=== PATIENT | female | born 1965 | race Two or more races ===

== ENCOUNTER 2020-11-03 08:00 | Outpatient (CLI) | payer OTHER | END 2020-11-03 08:30 | disposition home or self-care (01) | LOC: PPH VACUNA 08:00 | DX: Z23 Encounter for immunization (principal) ==

== ENCOUNTER 2022-01-25 12:57 | Emergency (ER) | payer OTHER ==
[~2022-01-25] VITALS: Ht 157.5 cm; Wt 65.3 kg
== END 2022-01-25 17:31 | disposition home or self-care (01) ==
LOC: ER 12:57
DX: S89.92XA Unspecified injury of left lower leg, initial encounter (principal); S89.91XA Unspecified injury of right lower leg, initial encounter; W19.XXXA Unspecified fall, initial encounter; Y93.9 Activity, unspecified; Y92.512 Supermarket, store or market as the place of occurrence of the external cause

== ENCOUNTER 2023-12-10 08:26 | Outpatient (CLI) | payer OTHER ==
[2023-12-10 09:05] LABS: URINE APPEARANCE Clear; URINE BILIRRUBIN Negative (NEGATIVE); URINE BLOOD Negative; URINE COLOR Yellow; URINE GLUCOSE Negative (NEGATIVE); URINE KETONE Negative (NEGATIVE); URINE LEUKOCYTE Moderate; URINE NITRATE Negative; URINE PROTEIN Negative (NEGATIVE); URINE UROBILINOGEN 0.2 E.U./dl
[2023-12-10 09:06] LABS: HEMOGLOBIN 14.1 g/dL (12.0-15.00); MEAN CELL VOLUME 91.5 fL (80.00-100.00); MEAN CORPUSCULAR HEMOGLOBIN 32.3 pg (27.00-32.0); MEAN CORPUSCULAR HGB CONC 35.3 g/dl (32.0-36.0); PLATELET COUNT 277 K/uL (150-450); RED BLOOD COUNT 4.37 M/uL (4.00-6.00)
[2023-12-10 09:09] LABS: URINE BACTERIA 692.8 uL (0.0-1933); URINE EPITHELIAL CELLS 27.8 uL (0.0-38.8); URINE RBC 3.9 uL (0.0-20.8); URINE WBC 43.9 uL (0.0-23.2)
[2023-12-10 09:26] LABS: INR 0.94; PARTIAL THROMBOPLASTIN TIME 25.9 SECONDS (22.0-34.0); PROTHROMBIN TIME 10.3 SECONDS (9.0-11.5)
[2023-12-10 09:52] LABS: BILIRUBIN TOTAL 0.45 mg/dL (0.3-1.2); CALCIUM 9.5 mg/dL (8.5-10.1); CREATININE SERUM 0.78 mg/dL (0.55-1.02); GFR 75.33; POTASSIUM 3.5 mEq/L (3.5-5.1)
== END 2023-12-10 08:34 | disposition home or self-care (01) ==
LOC: RAD 08:26
PROVIDERS: ATTEND Surgery
DX: E03.9 Hypothyroidism, unspecified (principal); E11.9 Type 2 diabetes mellitus without complications; I10 Essential (primary) hypertension; J45.909 Unspecified asthma, uncomplicated; K21.9 Gastro-esophageal reflux disease without esophagitis; N81.6 Rectocele

== ENCOUNTER 2023-12-17 10:36 | Inpatient (IN) | payer OTHER ==
[~2023-12-17] VITALS: Ht 157.5 cm; Wt 70.3 kg
[2023-12-17] MEDS ORDERED: ATACAND HCT 321 EAC1 PO (11:32)
[2023-12-17] MEDS ORDERED: ATACAND32 MG PO (11:32)
[2023-12-17] MEDS ORDERED: SINGULAIR10 MG PO (11:32)
[2023-12-17] MEDS ORDERED: SYNTHROID88 MCG PO (11:33)
[2023-12-17] MEDS ORDERED: WELLBUTRIN XL300 MG PO (11:33)
[2023-12-17] MEDS ORDERED: GLUCOTROL XL5 MG PO (11:33)
[2023-12-17] MEDS ORDERED: CLONAZEPAM1 M1 PO (11:33)
[2023-12-17 11:35] VITALS: BP 110/66
[2023-12-24] MEDS ORDERED: PROGESTERONE200 MG (09:17)
[2023-12-24] MEDS ORDERED: LEVALBUTER0.63 MG/3 (09:18)
[2023-12-24] MEDS ORDERED: GABAPENTIN300 M2 (09:18)
[2023-12-24] MEDS ORDERED: ATORVASTATIN CA10 MG (09:18)
[2023-12-24] MEDS ORDERED: ESOMEPRAZOLE MA20 MG (09:18)
[2023-12-24] MEDS ORDERED: BREYNA 160-4.10.3 GM (09:18)
[2023-12-24] MEDS ORDERED: LAMICTAL200 MG (09:18)
[2023-12-24] MEDS ORDERED: EZETIMIBE10 MG (09:19)
[2023-12-24] MEDS ORDERED: FAMOTIDINE20 MG (09:19)
[2023-12-24] MEDS ORDERED: SYNTHROID75 MCG (09:19)
[2023-12-24] MEDS ORDERED: VALACYCLOVIR1000 MG (09:19)
[2023-12-24] MEDS ORDERED: PANTOPRAZOLE SO40 MG (09:19)
[2023-12-24] MEDS ORDERED: ROSUVASTATIN CA20 MG (09:19)
[2023-12-24] MEDS ORDERED: CEFTRIAXONE SODIUM 2,000 MG VIAL IV ONE (09:45)
[2023-12-24] MEDS ORDERED: BUPIVACAINE HCL 30 ML VIAL IJ ONE (09:45)
[2023-12-24] MEDS ORDERED: DIBUCAINE 30 GM TUBE RECTAL ONE (09:45)
[2023-12-24] MEDS ORDERED: LIDOCAINE HCL 1%/EPINEPHRINE 20ML VIAL IJ ONE (09:45)
[2023-12-24] MEDS ORDERED: METRONIDAZOLE/SODIUM CHLORIDE 500 MG/100 ML PIGGYBACK IV ONE (09:45)
[2023-12-24] MEDS ORDERED: POVIDONE-IODINE 118 ML BOTT TOP ONE (09:45)
[2023-12-24] MEDS ORDERED: HEMOSTATIC MATRIX 1 KIT KIT TOP ONE (09:45)
[2023-12-24] MEDS ORDERED: OxyCODONE HCL 5 MG TABLET (ROXICODONE) PO PRN (11:00)
[2023-12-24] MEDS ORDERED: ONDANSETRON HCL 2 MG/ML VIAL IV PRN (11:00)
[2023-12-24] MEDS ORDERED: DEXTROSE 50 % IN WATER 0.5 G/ML DISP.SYRIN IV PRN (11:00)
[2023-12-24] MEDS ORDERED: MORPHINE SULFATE 4 MG/ML CARTRIDGE IV PRN (11:00)
[2023-12-24] MEDS ORDERED: RINGERS SOLUTION,LACTATED 1,000 ML IV SCH (11:00)
[2023-12-24] MEDS ORDERED: MORPHINE SULFATE 4 MG/ML VIAL IV ONE ×2 (12:45→14:20)
[2023-12-24] MEDS ORDERED: SIMETHICONE 125 MG CAPSULE PO SCH (13:00)
[2023-12-24] MEDS ORDERED: HYOSCYAMINE SULFATE 0.125 MG TAB.SUBL SL SCH (13:00)
[2023-12-24] MEDS ORDERED: ACETAMINOPHEN 500 MG GEL..CAP PO SCH (14:00)
[2023-12-24] MEDS ORDERED: GABAPENTIN 300 MG CAPSULE PO SCH (17:00)
[2023-12-24] MEDS ORDERED: METOCLOPRAMIDE HCL 5 MG/ML VIAL IV SCH (17:00)
[2023-12-24 17:10] VITALS: BP 110/66; O2SAT 98
[2023-12-24] MEDS ORDERED: FAMOTIDINE/PF 20 MG/2 ML VIAL IV PUSH SCH (21:00)
[2023-12-24] MEDS ORDERED: CELECOXIB 200 MG CAPSULE PO SCH (21:00)
[2023-12-25] VITALS: BP 100/51; O2SAT 96
[2023-12-25] MEDS ORDERED: CELEBREX200MG PO (07:46)
[2023-12-25] MEDS ORDERED: GABAPENTIN300 MG PO (07:46)
[2023-12-25] MEDS ORDERED: AMOX1TAB5 PO (07:47)
[2023-12-25] MEDS ORDERED: INTESTINEX680 M1 PO (07:47)
[2023-12-25] MEDS ORDERED: LACTOBACILLUS ACIDOPHILUS 1 CAP CAP PO SCH (09:00)
[2023-12-25 10:00] VITALS: BP 137/68; O2SAT 100
[2023-12-25] MEDS ORDERED: ENOXAPARIN SODIUM 40 MG/0.4 ML SYRINGE SUBCUTANEO SCH (17:00)
[2023-12-26] MEDS ORDERED: ENOXAPARIN SODIUM 40 MG/0.4 ML SYRINGE SUBCUTANEO SCH (09:00)
[2023-12-26] MEDS ORDERED: INTESTINEX680 M1 PO (15:51)
[2023-12-26] MEDS ORDERED: QUESTRAN LIGHT210 GM PO (15:51)
== END 2023-12-25 14:04 | disposition home or self-care (01) | DRG 748 ==
LOC: SURG 12-22 12:15 → O/R 12-24 05:55 → SURH 12-24 05:55
PROVIDERS: ADMIT Surgery; ATTEND Surgery
PROC: 3E0T3BZ Introduction of Anesthetic Agent into Peripheral Nerves and Plexi, Percutaneous Approach (ICD-10-PCS; 2023-12-24)
PROC: 0JQC0ZZ Repair Pelvic Region Subcutaneous Tissue and Fascia, Open Approach (ICD-10-PCS; principal; 2023-12-24 09:00)
DX: N81.6 Rectocele (principal); Z20.822 Contact with and (suspected) exposure to COVID-19

== ENCOUNTER 2023-12-26 09:27 | Emergency (ER) | payer OTHER ==
[~2023-12-26] VITALS: Ht 157.5 cm; Wt 67.1 kg
[~2023-12-26 09:27] MED LIST: AMOX1TAB5 PO; ATACAND HCT 321 EAC1 PO; ATACAND32 MG PO; ATORVASTATIN CA10 MG; BREYNA 160-4.10.3 GM; CELEBREX200MG PO; CLONAZEPAM1 M1 PO; ESOMEPRAZOLE MA20 MG; EZETIMIBE10 MG; FAMOTIDINE20 MG; GABAPENTIN300 M2; GABAPENTIN300 MG PO; GLUCOTROL XL5 MG PO; INTESTINEX680 M1 PO; LAMICTAL200 MG; LEVALBUTER0.63 MG/3; PANTOPRAZOLE SO40 MG; PROGESTERONE200 MG; ROSUVASTATIN CA20 MG; SINGULAIR10 MG PO; SYNTHROID75 MCG; SYNTHROID88 MCG PO; VALACYCLOVIR1000 MG; WELLBUTRIN XL300 MG PO
[2023-12-26 11:07] LABS: HEMATOCRIT 38.1 % (36.0-45.00); HEMOGLOBIN 13.5 g/dL (12.0-15.00); MEAN CELL VOLUME 91.7 fL (80.00-100.00); MEAN CORPUSCULAR HEMOGLOBIN 32.6 pg (27.00-32.0); MEAN CORPUSCULAR HGB CONC 35.6 g/dl (32.0-36.0); PLATELET COUNT 242 K/uL (150-450); RED BLOOD COUNT 4.15 M/uL (4.00-6.00); RED CELL DISTRIBUTION WIDTH 12.8 % (11.5-14.5)
[2023-12-26 11:34] LABS: ALBUMIN 3.8 gm/dL (3.4-5.0); BILIRUBIN TOTAL 0.76 mg/dL (0.3-1.2); CALCIUM 9.8 mg/dL (8.5-10.1); CREATININE SERUM 0.82 mg/dL (0.55-1.02); GFR 71.11; GLOBULINA 3.1 G/DL (2.4-3.5); POTASSIUM 3.44 mEq/L (3.5-5.1); TOTAL PROTEIN 6.9 gm/dL (6.4-8.2)
[2023-12-26 11:53] LABS: PARTIAL THROMBOPLASTIN TIME 25.6 SECONDS (22.0-34.0); PROTHROMBIN TIME 10.9 SECONDS (9.0-11.5)
[2023-12-26 12:10] LABS: URINE EPITHELIAL CELLS 9.5 uL (0.0-38.8); URINE RBC 7.9 uL (0.0-20.8); URINE WBC 24.1 uL (0.0-23.2)
[2023-12-26 12:11] LABS: URINE APPEARANCE Clear; URINE BILIRRUBIN Negative (NEGATIVE); URINE BLOOD Negative; URINE COLOR Yellow; URINE GLUCOSE Negative (NEGATIVE); URINE KETONE Negative (NEGATIVE); URINE LEUKOCYTE Small; URINE NITRATE Negative; URINE PROTEIN Negative (NEGATIVE); URINE UROBILINOGEN 0.2 E.U./dl
[2023-12-26] MEDS ORDERED: FAMOtidine 10 MG/ML (4ML VIAL) IV PUSH ONE (15:45)
[2023-12-26] MEDS ORDERED: CHOLESTYRAMINE/ASPARTAME LIGHT 4 G/PKT PACKET PO NR (15:45)
[2023-12-26] MEDS ORDERED: BUTALB/ACETAMINOPHEN/CAFFEINE 1 TAB TABLET PO ONE (15:45)
[2023-12-26] MEDS ORDERED: QUESTRAN LIGHT210 GM PO (15:51)
[2023-12-26] MEDS ORDERED: INTESTINEX680 M1 PO (15:51)
== END 2023-12-26 16:15 | disposition home or self-care (01) ==
LOC: ER 09:27
PROVIDERS: General Practice
DX: R15.9 Full incontinence of feces (principal); Z98.890 Other specified postprocedural states; E11.9 Type 2 diabetes mellitus without complications; Z79.84 Long term (current) use of oral hypoglycemic drugs; I10 Essential (primary) hypertension; E03.9 Hypothyroidism, unspecified; Z88.2 Allergy status to sulfonamides; Z88.8 Allergy status to other drugs, medicaments and biological substances; Z87.09 Personal history of other diseases of the respiratory system; K76.0 Fatty (change of) liver, not elsewhere classified
CPT/HCPCS: 36415; 74176; 96365; 99283; J3490